=== PATIENT | female | born 1980 | race Caucasian/White ===

== ENCOUNTER 2017-04-27 08:18 | Observation (INO) | payer OTHER ==
[~2017-04-27] VITALS: Ht 165.1 cm; Wt 49.0 kg
[~2017-04-27 08:18] MED LIST: ACET-1600 PO; ALPR1TAB2 PO; ANTIBIOTIC FOR UTI PO; HYDR25TA11 PO; LEVE100020 PO; OXYC-302 PO
[2017-04-27] MEDS ORDERED: LORazepam 2 MG/ML, 1ML ONE (08:29)
[2017-04-27] MEDS ORDERED: SODIUM CHLORIDE 0.9% 1,000 ML IV ONE (08:31)
[2017-04-27] MEDS ORDERED: LORazepam 2 MG/ML, 1ML IVPush ONE (09:00)
[2017-04-27] MEDS ORDERED: SODIUM CHLORIDE FLUSH 10ML SYR IVF ONE (09:00)
[2017-04-27 09:05] LABS: HEMOGLOBIN 12.5 g/dL (11.7-16.4); WHITE BLOOD COUNT 8.4 x10^3/uL (3.4-10)
[2017-04-27 09:09] LABS: ASPARTATE AMINO TRANSFERASE 19 U/L (15-37); BLOOD UREA NITROGEN 12 mg/dL (7-18)
[2017-04-27] MEDS ORDERED: ALPR-475 PO (09:41)
[2017-04-27 10:24] LABS: DAU SCREEN DISCLAIMER
[2017-04-27] MEDS ORDERED: ONDANSETRON ODT 4 MG PO PRN (11:30)
[2017-04-27] MEDS ORDERED: DOCUSATE 100 MG CAPSULE PO PRN (11:30)
[2017-04-27] MEDS ORDERED: ACETAMINOPHEN 325 MG TABLET PO PRN (11:30)
[2017-04-27] MEDS ORDERED: ONDANSETRON 2MG/ML, 2ML IVPush PRN (11:30)
[2017-04-27 11:42] VITALS: BP 96/64
[2017-04-27] MEDS ORDERED: THIAMINE 100 MG, MVI ADULT 10 ML, FOLIC ACID 1 MG in D5%-0.9% NACL 1,000 ML IV SCH (13:00)
[2017-04-27 13:39] VITALS: BP 84/47
[2017-04-27] MEDS: HEPARIN 5,000 UNITS/ML, 1ML SQ SCH ×2 (15:42→23:52)
[2017-04-27] MEDS ORDERED: GADOBUTROL 7.5 MMOL/7.5 ML PFS ONE (17:26)
[2017-04-27 18:37] VITALS: BP 93/59
[2017-04-27] MEDS ORDERED: LORazepam 2 MG/ML, 1ML IVPush PRN (21:00)
[2017-04-27] MEDS ORDERED: LACTULOSE 10 GM/15 ML UDC PO SCH (21:00)
[2017-04-28 01:34] VITALS: BP 92/54
[2017-04-28 05:20] LABS: BLOOD UREA NITROGEN 9 mg/dL (7-18)
[2017-04-28 05:31] LABS: ASPARTATE AMINO TRANSFERASE 18 U/L (15-37)
[2017-04-28 05:48] LABS: HEMATOCRIT 30.8 % (34.6-47.8); HEMOGLOBIN 10.4 g/dL (11.7-16.4); WHITE BLOOD COUNT 5.9 x10^3/uL (3.4-10)
[2017-04-28 06:45] VITALS: BP 99/61
[2017-04-28] MEDS: HEPARIN 5,000 UNITS/ML, 1ML SQ SCH (08:15)
[2017-04-28] MEDS ORDERED: SENNA/DOCUSATE TABLET PO SCH (09:00)
[2017-04-28 12:06] VITALS: BP 94/59
== END 2017-04-28 14:35 | disposition home or self-care (01) ==
LOC: ED 08:42 → EDIP 10:35 → INTOOBSV 10:35 → 4WST 12:25 → DCLOUNGE 04-28 14:18
PROVIDERS: ADMIT Internal Medicine; ATTEND Internal Medicine
DX: R56.9 Unspecified convulsions (principal); E87.6 Hypokalemia; F12.10 Cannabis abuse, uncomplicated; F41.9 Anxiety disorder, unspecified; F10.239 Alcohol dependence with withdrawal, unspecified; F17.200 Nicotine dependence, unspecified, uncomplicated; R32 Unspecified urinary incontinence; Z86.69 Personal history of other diseases of the nervous system and sense organs
CPT/HCPCS: 36415; 70450; 70553; 80053; 80307; 82140; 82962; 83735; 84100; 84439; 84443; 84703; 85025; 93005; 96365; 96366; 96372; 96375; 99291; A9585; G0378; J1644; J2060; J2405; J3411; J7042; G0479

== ENCOUNTER 2020-10-17 07:53 | Day surgery (SDC) | payer BC, OTHER ==
[~2020-10-17] VITALS: Ht 165.1 cm; Wt 53.0 kg
[~2020-10-17 07:53] MED LIST changes: +ALPR0.5T7 PO; +ALPR0.5T93 PO; +HYDR-826 PO; -HYDR25TA11 PO; +LIPA1CAP20 PO; +MELA10TA3 PO; +METH-639 PO; +ONDA4TAB13 SL; -OXYC-302 PO; +OXYC1TAB14 PO; +[UNRECOGNIZED DRUG - OTHER] PO
[2020-10-17] MEDS ORDERED: CHLORHEXIDINE 15 ML UDC ONE (08:21)
[2020-10-17 08:28] LABS: HCG UR SG 1.022 (1.003-1.030)
[2020-10-17] MEDS ORDERED: LACTATED RINGERS 1,000 ML IV SCH (08:30)
[2020-10-17] MEDS ORDERED: CHLORHEXIDINE 15 ML UDC MM ONE (08:30)
[2020-10-17 08:32] VITALS: BP 103/69
[2020-10-17 08:49] LABS: BASOPHILS % (AUTO) 2 % (0-1); EOSINOPHILS % (AUTO) 6 % (1-7); LYMPHOCYTES % (AUTO) 35 % (22-44); MD NO; MEAN CORPUSCULAR HEMOGLOBIN 27.6 pg (27.0-34.8); MEAN CORPUSCULAR HGB CONC 32.5 g/dL (32.4-35.8); MEAN PLATELET VOLUME 7.1 fL (7.4-10.4); MONOCYTES % (AUTO) 7 % (2-9); NEUTROPHILS % (AUTO) 51 % (42-75); PLATELET COUNT 387 x10^3/uL (130-400); RED BLOOD COUNT 3.86 x10^6/uL (3.82-5.3); RED CELL DISTRIBUTION WIDTH 15.7 % (9.6-15.2)
[2020-10-17] MEDS ORDERED: LIDOCAINE-MPF 2% ,5ML ONE (09:25)
[2020-10-17] MEDS ORDERED: GLYCOPYRROLATE 0.2MG/1ML, 5ML ONE (09:25)
[2020-10-17] MEDS ORDERED: MIDAZOLAM 1 MG/ML, 2ML ONE (09:25)
[2020-10-17] MEDS ORDERED: ROCURONIUM 10MG/ML,5ML ONE (09:25)
[2020-10-17] MEDS ORDERED: DEXAMETHASONE 4 MG/ML, 5ML ONE (09:25)
[2020-10-17] MEDS ORDERED: PROPOFOL 10 MG/ML, 20ML ONE (09:25)
[2020-10-17] MEDS ORDERED: hydrALAzine 20 MG/ML, 1ML IV PRN (09:30)
[2020-10-17] MEDS ORDERED: EPHEDRINE 50 MG/ML, 1ML IM PRN (09:30)
[2020-10-17] MEDS ORDERED: LABETALOL 5MG/ML, 20ML IV PRN (09:30)
[2020-10-17] MEDS ORDERED: ONDANSETRON 2MG/ML, 2ML IVPush PRN (09:30)
[2020-10-17] MEDS ORDERED: DIPHENHYDRAMINE 50 MG/ML, 1ML IVPush PRN (09:30)
[2020-10-17] MEDS ORDERED: OXYcodone 5 MG/5 ML ORAL.SOL UDC PO PRN (09:30)
[2020-10-17] MEDS ORDERED: METHOCARBAMOL 1,000 MG in DEXTROSE 5% 100 ML IV PRN (09:30)
[2020-10-17] MEDS ORDERED: DIAZEPAM 5 MG/ML, 2ML IVPush PRN (09:30)
[2020-10-17] MEDS ORDERED: METOCLOPRAMIDE 5 MG/ML, 2ML IVPush PRN (09:30)
[2020-10-17] MEDS ORDERED: LORazepam 2 MG/ML, 1ML IVPush PRN (09:30)
[2020-10-17] MEDS ORDERED: HYDROmorphone 1 MG/ML, 1ML INJ IVPush PRN (09:30)
[2020-10-17] MEDS ORDERED: ALBUTEROL SULFATE 2.5 MG/3 ML NPPB PRN (09:30)
[2020-10-17] MEDS ORDERED: MIDAZOLAM 1 MG/ML, 2ML IV PRN (09:30)
[2020-10-17] MEDS ORDERED: EPHEDRINE 50 MG/ML, 1ML IVPush PRN (09:30)
[2020-10-17] MEDS ORDERED: HYDROcodone/APAP 7.5-325MG/15ML UDC PO PRN (09:30)
[2020-10-17] MEDS ORDERED: FENTANYL PF 100 MCG/2ML IV PRN (09:30)
[2020-10-17] MEDS ORDERED: KETOROLAC 30 MG/1 ML IVPush PRN (09:30)
[2020-10-17] MEDS ORDERED: INDOMETHACIN 50 MG SUPP.RECT ONE (09:36)
[2020-10-17] MEDS ORDERED: OMNIPAQUE 350 MG/ML, 50 ML BOTTLE ONE (11:45)
== END 2020-10-17 13:30 | disposition home or self-care (01) ==
LOC: OUT 07:53 → EDSTATUS 10:00 → OUT 13:30
PROVIDERS: ATTEND Internal Medicine
DX: K80.50 Calculus of bile duct without cholangitis or cholecystitis without obstruction (principal); K86.1 Other chronic pancreatitis; Z20.822 Contact with and (suspected) exposure to COVID-19; Z79.899 Other long term (current) drug therapy
CPT/HCPCS: 36415; 43262; 43264; 43273; 74328; 81025; 85025; C1769; J1100; J2250; J2704; J7120; Q9967; U0003